=== PATIENT | female | born 1995 | race Caucasian/White ===

== ENCOUNTER 2020-03-01 11:16 | Inpatient (IN) | payer BC, MEDICAID ==
[~2020-03-01] VITALS: Ht 167.6 cm; Wt 129.0 kg
[2020-03-01] MEDS ORDERED: LACTATED RINGERS 1,000 ML IV SCH ×2 (11:20→18:11)
[2020-03-01] MEDS ORDERED: D5%-LACTATED RINGERS 1,000 ML IV SCH (11:20)
[2020-03-01] MEDS ORDERED: OXYTOCIN 30U/ 0.9% NaCL 500ML 500 ML IV PRN ×2 (11:20→14:16)
[2020-03-01] MEDS ORDERED: OXYTOCIN 30U/ 0.9% NaCL 500ML 500 ML IV ONE (11:20)
[2020-03-01] MEDS ORDERED: MISOPROSTOL 25 MCG TABLET VG PRN (11:30)
[2020-03-01] MEDS ORDERED: FENTANYL PF 100 MCG/2ML IVPush PRN (11:30)
[2020-03-01] MEDS ORDERED: ONDANSETRON 2MG/ML, 2ML IVPush PRN (11:30)
[2020-03-01] MEDS ORDERED: PLEASE ENTER HEIGHT AND WEIGHT MC SCH (11:30)
[2020-03-01] MEDS ORDERED: CALCIUM CARBONATE 500 MG TAB.CHEW PO PRN (11:30)
[2020-03-01] MEDS ORDERED: FENTANYL PF 100 MCG/2ML IV PRN (11:30)
[2020-03-01] MEDS ORDERED: TERBUTALINE 1 MG/ML, 1ML SQ PRN (11:30)
[2020-03-01] MEDS ORDERED: TERBUTALINE 1 MG/ML, 1ML IVPush PRN (11:30)
[2020-03-01 11:39] LABS: MICROSCOPIC INDICATED
[2020-03-01 11:41] VITALS: BP 129/87
[2020-03-01 11:48] LABS: AMPHETAMINE SCREEN, URINE Negative (Negative); BARBITURATE SCREEN, URINE Negative (Negative); BENZODIAZEPINE SCREEN, URINE Negative (Negative); CANNABINOID SCREEN, URINE Negative (Negative); COCAINE SCREEN, URINE Negative (Negative); METHADONE SCREEN, URINE Negative (Negative); OPIATE SCREEN, URINE Negative (Negative); PROTEIN/CREATININE RATIO,URINE 97 (0-200); TOTAL PROTEIN,URINE RANDOM 16 mg/dL (0-12)
[2020-03-01] MEDS ORDERED: MISOPROSTOL 25 MCG TABLET ONE (12:01)
[2020-03-01 12:11] LABS: BASOPHILS # (AUTO) 0.01 x10^3/uL (0-0.1); BASOPHILS % (AUTO) 0 % (0-1); EOSINOPHILS # (AUTO) 0.09 x10^3/uL (0-0.4); EOSINOPHILS % (AUTO) 1 % (1-7); LYMPHOCYTES # (AUTO) 1.31 x10^3/uL (1-3.4); LYMPHOCYTES % (AUTO) 14 % (22-44); MD NO; MEAN CORPUSCULAR HEMOGLOBIN 30.6 pg (27.0-34.8); MEAN CORPUSCULAR HGB CONC 33.2 g/dL (32.4-35.8); MEAN CORPUSCULAR VOLUME 92.1 fL (80-100); MEAN PLATELET VOLUME 7.1 fL (7.4-10.4); MONOCYTES # (AUTO) 0.52 x10^3/uL (0.2-0.8); MONOCYTES % (AUTO) 5 % (2-9); NEUTROPHILS # (AUTO) 7.66 x10^3/uL (1.8-6.8); NEUTROPHILS % (AUTO) 80 % (42-75); PLATELET COUNT 361 x10^3/uL (130-400); RED BLOOD COUNT 3.91 x10^6/uL (3.82-5.3); RED CELL DISTRIBUTION WIDTH 13.9 % (9.6-15.2)
[2020-03-01] MEDS ORDERED: NEWBORN KIT ONE (12:19)
[2020-03-01 12:23] LABS: ALANINE AMINOTRANSFERASE 15 U/L (12-78); ALBUMIN 2.6 g/dL (3.4-5.0); ANION GAP 8 mmol/L (5-15); CALCIUM 9.3 mg/dL (8.5-10.1); CHLORIDE 111 mmol/L (98-107)
[2020-03-01 12:25] LABS: ALKALINE PHOSPHATASE 85 U/L (45-117); BILIRUBIN,TOTAL 0.2 mg/dL (0.2-1.0); CREATININE 0.69 mg/dL (0.55-1.02); TOTAL PROTEIN 6.6 g/dL (6.4-8.2)
[2020-03-01] MEDS ORDERED: MISOPROSTOL 200 MCG TABLET ONE (15:36)
[2020-03-01] MEDS ORDERED: LIDOCAINE 1%, 20ML ONE (15:36)
[2020-03-01] MEDS ORDERED: OXYTOCIN 30U/ 0.9% NaCL 500ML 500 ML ONE (15:37)
[2020-03-01] MEDS ORDERED: FENTANYL/BUPIV./NS/PF 250 ML EPIDCONT SCH (18:11)
[2020-03-01] MEDS ORDERED: LACTATED RINGERS 1,000 ML IVBOLUS PRN (18:30)
[2020-03-01] MEDS ORDERED: EPHEDRINE 50 MG/ML, 1ML IVPush PRN (18:30)
[2020-03-01] MEDS ORDERED: FENTANYL PF 100 MCG/2ML ONE ×2 (20:28)
[2020-03-01] MEDS ORDERED: LIDOCAINE/PF 1.5%-EPI 1:200K, 30ML ONE (20:28)
[2020-03-01] MEDS ORDERED: BUPIVACAINE 0.25% ONE ×2 (20:28)
[2020-03-01] MEDS ORDERED: FENTANYL PF 500 MCG, BUPIVACAINE/PF 0.5%, 30ML 62.5 ML in SODIUM CHLORIDE 0.9% 177.5 ML EPIDCONT SCH (20:30)
[2020-03-02 04:39] VITALS: BP 133/73
[2020-03-02] MEDS ORDERED: MISOPROSTOL 200 MCG TABLET PR PRN (05:00)
[2020-03-02] MEDS ORDERED: OXYcodone/APAP 5/325MG TABLET PO PRN ×2 (05:00)
[2020-03-02] MEDS ORDERED: SIMETHICONE 80 MG CHEW TAB PO PRN (05:00)
[2020-03-02] MEDS ORDERED: CARBOPROST TROMETHAMINE 250 MCG/ML, 1ML IM PRN (05:00)
[2020-03-02] MEDS ORDERED: OXYTOCIN 30U/ 0.9% NaCL 500ML 500 ML ONE (05:02)
[2020-03-02] MEDS: OXYTOCIN 30U/ 0.9% NaCL 500ML 500 ML IV SCH ×2 (05:04→14:06)
[2020-03-02 07:30] VITALS: BP 121/72
[2020-03-02] MEDS: DOCUSATE 100 MG CAPSULE PO PRN ×2 (09:19→21:15)
[2020-03-02] MEDS: IBUPROFEN 800 MG TABLET PO PRN ×2 (09:19→21:15)
[2020-03-02] MEDS: PRENATAL VIT/IRON/FA 1 EACH TABLET PO SCH (09:19)
[2020-03-02 12:32] LABS: BASOPHILS # (AUTO) 0.06 x10^3/uL (0-0.1); BASOPHILS % (AUTO) 0 % (0-1); EOSINOPHILS # (AUTO) 0.08 x10^3/uL (0-0.4); EOSINOPHILS % (AUTO) 1 % (1-7); LYMPHOCYTES # (AUTO) 1.88 x10^3/uL (1-3.4); LYMPHOCYTES % (AUTO) 13 % (22-44); MD NO; MEAN CORPUSCULAR HEMOGLOBIN 30.7 pg (27.0-34.8); MEAN PLATELET VOLUME 6.9 fL (7.4-10.4); MONOCYTES % (AUTO) 5 % (2-9); NEUTROPHILS % (AUTO) 82 % (42-75); PLATELET COUNT 292 x10^3/uL (130-400); RED CELL DISTRIBUTION WIDTH 13.6 % (9.6-15.2)
[2020-03-02 13:40] VITALS: BP 140/72
[2020-03-02] MEDS ORDERED: FENTANYL PF 100 MCG/2ML ONE (14:02)
[2020-03-02 14:30] VITALS: BP 137/83
[2020-03-02] MEDS ORDERED: FENTANYL PF 100 MCG/2ML IVPush ONE (14:30)
[2020-03-02 18:00] VITALS: BP 125/78
[2020-03-02 20:45] VITALS: BP 124/79
[2020-03-03 00:15] VITALS: BP 126/71
[2020-03-03] MEDS: OXYTOCIN 30U/ 0.9% NaCL 500ML 500 ML IV SCH (00:33)
[2020-03-03 04:00] VITALS: BP 118/82
[2020-03-03] MEDS: IBUPROFEN 800 MG TABLET PO PRN (06:26)
[2020-03-03] MEDS: DOCUSATE 100 MG CAPSULE PO PRN (07:59)
[2020-03-03] MEDS: PRENATAL VIT/IRON/FA 1 EACH TABLET PO SCH (07:59)
[2020-03-03 08:00] VITALS: BP 122/74
[2020-03-03 08:42] LABS: BASOPHILS # (AUTO) 0.02 x10^3/uL (0-0.1); BASOPHILS % (AUTO) 0 % (0-1); EOSINOPHILS % (AUTO) 3 % (1-7); LYMPHOCYTES # (AUTO) 2.22 x10^3/uL (1-3.4); LYMPHOCYTES % (AUTO) 20 % (22-44); MD NO; MEAN CORPUSCULAR HGB CONC 32.3 g/dL (32.4-35.8); MEAN PLATELET VOLUME 6.6 fL (7.4-10.4); MONOCYTES # (AUTO) 0.54 x10^3/uL (0.2-0.8); MONOCYTES % (AUTO) 5 % (2-9); NEUTROPHILS % (AUTO) 73 % (42-75); PLATELET COUNT 309 x10^3/uL (130-400); RED BLOOD COUNT 3.24 x10^6/uL (3.82-5.3); RED CELL DISTRIBUTION WIDTH 13.7 % (9.6-15.2)
[2020-03-03] MEDS ORDERED: IBUP-1223 PO (10:50)
== END 2020-03-03 11:50 | disposition home or self-care (01) | DRG 807 ==
LOC: LDIP 11:16 → 2NW 03-02 06:50
PROVIDERS: ADMIT Obstetrics & Gynecology; ATTEND Obstetrics & Gynecology
PROC: 10E0XZZ Delivery of Products of Conception, External Approach (ICD-10-PCS; principal; 2020-03-02)
PROC: 0KQM0ZZ Repair Perineum Muscle, Open Approach (ICD-10-PCS; 2020-03-02)
PROC: 10907ZC Drainage of Amniotic Fluid, Therapeutic from Products of Conception, Via Natural or Artificial Opening (ICD-10-PCS; 2020-03-02)
DX: O13.4 Gestational [pregnancy-induced] hypertension without significant proteinuria, complicating childbirth (principal); Z37.0 Single live birth; O70.1 Second degree perineal laceration during delivery; Z3A.38 38 weeks gestation of pregnancy
CPT/HCPCS: 36415; J3490; S0020; 80053; 80307; 81001; 82570; 84156; 84550; 85025; 86592; 86850; 86900; 86923; G0378; J3010; J2590; J7050; J7120